=== PATIENT | male | born 1990 | race Caucasian/White ===

== ENCOUNTER 2019-03-08 05:54 | Day surgery (SDC) | payer BC, OTHER ==
[2019-03-08] VITALS (14 sets, daily range): BP systolic 89–118; BP diastolic 38–68; PULSE 51–70; RESP 10–23; Ht 167.6 cm; Wt 67.7 kg
[~2019-03-08] VITALS: Ht 167.6 cm; Wt 67.7 kg
[2019-03-08] MEDS ORDERED: ROPIVACAINE 0.5 % 30 ML VIAL ONE ×2 (06:52→07:09)
[2019-03-08] MEDS ORDERED: BACITRACIN/POLYMYXIN 28.35 GM OINT TOP ONE (06:52)
[2019-03-08] MEDS ORDERED: POLYMYXIN/BACITRACIN 1L IRRIG ONE (06:52)
[2019-03-08] MEDS ORDERED: NEOSTIGMINE 3 MG/3 ML SYRINGE ONE (07:00)
[2019-03-08] MEDS ORDERED: MIDAZOLAM 1 MG/ML 2 ML INJ ONE (07:08)
[2019-03-08] MEDS ORDERED: FENTAnyl 50 MCG/ML VIAL ONE ×2 (07:08→07:58)
--- NOTE | 2019-03-08 07:11 | PREAC ---
Date/Time of Note Date/Time of Note DATE: 03/08/19 TIME: 07:07 Anesthesia Eval and Record Evaluation Time Pre-Procedure Interview DATE: 03/08/19 TIME: 07:07 Age 28 Sex male NPO: 8 hrs Preoperative diagnosis Right Distal Tibial Bone Spur Planned procedure Right Ankle Arthroscopy, Extensive Debridment and removal of the bone spur Past Medical History Past Medical History: None Surgery & Anesthesia Issues No known issue Meds Anticoagulation: No Beta Radha within 24 hr: No Reason Beta Radha not given: Pt. not on B-Radha No Active Prescriptions or Reported Meds Meds reviewed: Yes Allergies Coded Allergies: clindamycin (Verified Allergy, Unknown, HIVES, 03/08/19) Allergies Reviewed: Yes Labs/Studies Labs Reviewed: Reviewed by anesthesiologist test: N/A Studies: ECG (n/a), CXR (n/a) Pre-procedure Exam Last vitals Vital Signs Date Temp Pulse Resp B/P (MAP) Pulse Ox O2 O2 Flow FiO2 Time Delivery Rate 03/08/19 97.8 51 17 106/66 100 Room Air 06:38 (79) Airway: Adequate mouth opening, Adequate thyromental dist Mallampati: Mallampati II Teeth: Normal Lung: Normal Heart: Normal ASA Physical Status ASA physical status: 1 Emergency: None Planned Anesthetic General/MAC: ETT Nerve block: Femoral (right), Sciatic (right) Planned Pain Management Single shot nerve block, Parenteral pain med Pre-operative Attestations Prior to commencing anesthesia and surgery, the patient was re-evaluated, there was verification of: *The patient's identity *The results of appropriate recent lab work and preoperative vital signs *The above evaluation not changing prior to induction *Anesthetic plan, risk benefits, alternative and complications discussed with patient/family; questions answered; patient/family understands, accepts and w ishes to proceed. CHANDLER DE LA GARZA MD Mar 08, 2019 07:11
[2019-03-08] MEDS ORDERED: CEFAZOLIN 1 GM INJ ONE (08:07)
[2019-03-08] MEDS ORDERED: GLYCOPYRROLATE 0.4 MG INJ ONE (08:16)
[2019-03-08] MEDS ORDERED: DEXAMETHASONE 4 MG/ML 5 ML INJ ONE (08:18)
[2019-03-08] MEDS ORDERED: EPHEDrine 25 MG/5 ML SYG ONE (08:21)
[2019-03-08] MEDS ORDERED: PROPOFOL 40 ML ONE (08:23)
[2019-03-08] MEDS ORDERED: ROCURONIUM 50 MG INJ ONE (08:23)
[2019-03-08] MEDS ORDERED: LIDOCAINE 2% (SDV) 5 ML INJ ONE (08:23)
[2019-03-08] MEDS ORDERED: METOCLOPRAMIDE 10 MG INJ ONE (08:25)
[2019-03-08] MEDS ORDERED: ONDANSETRON 4 MG INJ ONE (08:25)
--- NOTE | 2019-03-08 10:14 | PAC ---
Date/Time of Note Date/Time of Note DATE: 03/08/19 TIME: 10:12 Post-Anesthesia Notes Post-Anesthesia Note Last documented vital signs Vital Signs Date Temp Pulse Resp B/P (MAP) Pulse Ox O2 O2 Flow FiO2 Time Delivery Rate 03/08/19 97.8 51 17 106/66 100 Room Air 06:38 (79) Activity: WNL Respiratory function: WNL Cardiovascular function: WNL Mental status: Baseline Pain reasonably controlled: Yes Hydration appropriate: Yes Nausea/Vomiting absent: Yes Comments bp 91/38 Spo2 100% HR 58 RR 12 T 96.3F LUISA YORK [employer] Mar 08, 2019 10:14
--- NOTE | 2019-03-08 10:14 | HPN ---
Date/Time of Note Date/Time of Note DATE: 03/08/19 TIME: 10:14 Interval H&P Admission Note Pt. seen H&P reviewed: No system changes NONI SOSA MD Mar 08, 2019 10:14
[2019-03-08] MEDS ORDERED: KETOROLAC 30 MG INJ IV SCH (10:30)
[2019-03-08] MEDS ORDERED: HYDROmorphONE 1 MG/5 ML IV SYRINGE IV PRN ×2 (10:30)
[2019-03-08] MEDS ORDERED: KETOROLAC 15 MG INJ IV PRN (10:30)
[2019-03-08] MEDS ORDERED: OXYCODONE/ACETAMINOPHEN (5/325) TAB PO PRN (10:30)
[2019-03-08] MEDS ORDERED: FENTAnyl 50 MCG/ML VIAL IV PRN (10:30)
[2019-03-08] MEDS ORDERED: morphine 2 MG INJ IV PRN (10:30)
[2019-03-08] MEDS ORDERED: ONDANSETRON 4 MG INJ IV PRN (10:30)
--- NOTE | 2019-03-08 12:37 | OPR ---
Date/Time of Note Date/Time of Note DATE: 03/08/19 TIME: 12:28 Operative Report Procedure Date: Mar 08, 2019 Preoperative Diagnosis Right ankle anterior impingement and synovitis Right ankle anterior talar neck exostosis Postoperative Diagnosis Right ankle anterior impingement and synovitis Right ankle anterior talar neck exostosis Operation/Procedure Performed Right ankle arthroscopy with extensive debridement Right ankle-talus exostectomy and partial excision of bone Right ankle manipulation under anesthesia Surgeon Shubham Sosa MD Lip Of Shank Cutter None Anesthesia Type: general, other (Popliteal regional block) Anesthesiologist: LUISA YORK CRNA Tourniquet Time: 40 minutes at 250 mm tourniquet Estimated Blood Loss: minimal Transfusion none Specimen None Grafts/Implants none Complications none Pt Condition Post Procedure: stable Disposition: PACU Indications Patient is a 28-year-old male anterior and anterior lateral ankle with limitation in ankle range of motion and dorsiflexion due to pain and bony block from an anterior talus osteophyte and exostosis Procedure Description The patient was met in the preoperative holding area, marked with the correct operative extremity confirmed with both patient and consent. The patient was then brought back in the operative theater, placed supine on operative table, given preoperative antibiotics and preoperative regional block anesthesia. The patient was then placed in the arthroscopic thigh herrera with all bony prominences well padded with a nonsterile tourniquet placed on the operative extremity. The patient was then prepped and draped in the normal sterile fashion. All parties in the room did a timeout and everyone agreed it was the correct patient, and extremity and procedure. Initial distraction was placed across the joint and the superficial peroneal nerve had been marked out prior to distraction, and using extreme caution to avoid any injury to the neurovascular structures, the anteromedial, anterolat eral, and posterolateral portals were created in the standard fashion. The arthroscope was brought into the ankle and a 21-point exam was performed showing extensive hemorrhagic scar tissue and synovitis in the ankle with extensive scar tissue in both the medial, lateral, posterior and anterior gutters. The anterior tibia was debrided and burred until smooth and stable rim. After thorough debridement of the anterior medial, lateral, posterior and anterior gutters, the ankle was irrigated thoroughly with normal saline and the arthroscopes were removed. At this point, the thigh herrera was removed and the patient was well padded under both extremities and patient was then reprepped and draped, and all gloves and instruments were changed. Attention was then turned initially to the anterior ankle exostosis. An incision was made over the the anterior talus. The superficial peroneal nerve was identified and retracted and all neurovascular structures were protected at the case. The exostosis was identified and removed with a osteotome and then irrigated thoroughly and fluoroscopy confirmed that the exostosis had been removed. The wound was then irrigated thoroughly and then the exostosis site was rasped to a smooth border and then covered with bone wax. Then irrigated again. Ankle was then manipulated to get dorsiflexion approximately 25 degrees. All wounds were thoroughly irrigated and closed with initially3-0 Monocryl followed by 4-0 nylon in a vertical mattress fashion. All wounds were dressed with Xeroform, antibiotic ointment, 4 x 4s, 5 ABDs were placed and the patient was placed in a well-padded short leg splint. Tourniquet had been brought down prior to this and hemostasis had been achieved prior to the wound closure. The wounds were irrigated thoroughly prior to closure as well. All sponge and needle counts were correct. SHUBHAM SOSA MD Mar 08, 2019 12:37
== END 2019-03-08 12:45 | disposition home or self-care (01) ==
LOC: SDS 05:54
PROVIDERS: ATTEND Orthopaedic Surgery
DX: M25.871 Other specified joint disorders, right ankle and foot (principal); D16.31 Benign neoplasm of short bones of right lower limb
CPT/HCPCS: 27635; 29898; 73610; 82306; J0690; J1100; J2250; J2405; J2710; J2765; J2795; J3010; Z7512; Z7610